=== PATIENT | female | born 1945 | race Caucasian/White ===

== ENCOUNTER 2022-08-20 07:27 | Emergency (ER) | payer MEDICARE ==
[~2022-08-20] VITALS: Ht 177.8 cm; Wt 47.8 kg
[2022-08-20 08:00] LABS: BASOPHILS # (AUTO) 0.1 X10'3 (0-0.2); BASOPHILS % (AUTO) 1.5 % (0-1); EOSINOPHILS # (AUTO) 0.1 X10'3 (0-0.9); EOSINOPHILS % (AUTO) 1.3 % (0-6); HEMATOCRIT 40.5 % (35.0-45.0); HEMOGLOBIN 13.8 g/dl (12.0-16.0); LYMPHOCYTES % (AUTO) 38.8 % (21-51); MEAN CORPUSCULAR HEMOGLOBIN 33.2 PG (27.0-31.0); MEAN CORPUSCULAR HGB CONC 34.2 g/dL (33.0-36.5); MEAN CORPUSCULAR VOLUME 97.2 FL (78-98); MEAN PLATELET VOLUME 7.1 FL (7.4-10.4); MONOCYTES # (AUTO) 0.5 X10'3 (0-0.9); MONOCYTES % (AUTO) 8.9 % (2-12); NEUTROPHILS # (AUTO) 2.6 X10'3 (1.8-7.7); NEUTROPHILS % (AUTO) 49.5 % (42-75); PLATELET COUNT 326 X10'3 (140-440); RED BLOOD COUNT 4.16 X10'6 (4.20-5.60); RED CELL DISTRIBUTION WIDTH 13.2 % (11.5-14.5); WHITE BLOOD COUNT 5.2 X10'3 (4.5-11.0)
[2022-08-20 08:34] LABS: ALANINE AMINOTRANSFERASE 17 U/L (12-78); ALBUMIN 4.1 G/DL (3.4-5.0); ALBUMIN/GLOBULIN RATIO 1.1 (1.1-1.5); ALKALINE PHOSPHATASE 111 IU/L (46-116); ANION GAP 10 (8-16); ASPARTATE AMINO TRANSFERASE 22 U/L (10-37); BILIRUBIN,TOTAL 0.5 MG/DL (0.1-1.0); BLOOD UREA NITROGEN 22 MG/DL (7-18); BUN/CREATININE RATIO 29.7 (10.0-20.0); CALCIUM 9.4 MG/DL (8.5-10.1); CHLORIDE 96 MMOL/L (99-107); CREATININE 0.74 MG/DL (0.40-0.90); GLUCOSE 118 MG/DL (70-104); POTASSIUM 4.6 MMOL/L (3.5-5.1); SODIUM 130 MMOL/L (135-145); TOTAL CARBON DIOXIDE 24.3 MMOL/L (24-32); TOTAL PROTEIN 7.8 G/DL (6.4-8.2); eGFR 77 ML/MIN
[2022-08-20] MEDS ORDERED: normal saline 1000ML IV soln IVB ONE (08:35)
[2022-08-20 11:16] LABS: CLARITY,URINE CLEAR (Clear); COLOR,URINE STRAW (Yellow); GLUCOSE, URINE NEGATIVE (Neg); KETONES,URINE TRACE mg/dl (Neg); LEUKOCYTE ESTERASE ,URINE NEGATIVE (Neg); NITRITES, URINE NEGATIVE (Neg); OCCULT BLOOD,URINE NEGATIVE (Neg); PROTEIN,URINE NEGATIVE (Neg); UROBILINOGEN,URINE 0.2 E.U/dL (0.2-1.0)
[2022-08-20 11:26] LABS: UA COLLECTION TYPE VOIDED
--- NOTE | 2022-08-20 11:50 | NUR ---
Latrice kan in [facility] - 08/20/22 at 1222 by [facility]ED AT THIS TIME FOR COMFORT/CONVENIENCE.
--- NOTE | 2022-08-20 12:20 | NUR ---
TO CT AT THIS TIME VIA [facility].
[2022-08-20 13:58] VITALS: BP 134/86
== END 2022-08-20 14:00 | disposition home or self-care (01) ==
LOC: ER 07:28
DX: R53.1 Weakness (principal); Z20.822 Contact with and (suspected) exposure to COVID-19; Z88.5 Allergy status to narcotic agent
CPT/HCPCS: 36415; 70450; 71045; 80053; 81003; 83605; 83880; 84484; 85025; 87040; 87502; 87503; 87811; 93005; 96360; 99285; J7030

== ENCOUNTER 2024-02-17 13:40 | Emergency (ER) | payer MEDICARE ==
[~2024-02-17 13:40] MED LIST: FAMO-129 PO; HYDR-3717 PO
== END 2024-02-17 15:02 | disposition left against medical advice (07) ==
LOC: ER 13:41
DX: H57.10 Ocular pain, unspecified eye (principal); Z88.8 Allergy status to other drugs, medicaments and biological substances; Z53.21 Procedure and treatment not carried out due to patient leaving prior to being seen by health care provider

== ENCOUNTER 2024-02-23 10:16 | Emergency (ER) | payer MEDICARE ==
[~2024-02-23] VITALS: Ht 177.8 cm; Wt 52.9 kg
[2024-02-23 10:18] VITALS: BP 169/97; PULSE 68; RESP 16; O2SAT 98
[2024-02-23] MEDS ORDERED: CEPH-585 PO (12:49)
[2024-02-23 13:05] VITALS: TEMP 97.4
== END 2024-02-23 13:08 | disposition home or self-care (01) ==
LOC: ER 10:16
DX: L03.211 Cellulitis of face (principal); G62.9 Polyneuropathy, unspecified; Z88.8 Allergy status to other drugs, medicaments and biological substances
CPT/HCPCS: 99283

== ENCOUNTER 2024-02-26 11:05 | Emergency (ER) | payer MEDICARE ==
[~2024-02-26] VITALS: Ht 177.8 cm; Wt 70.3 kg
[~2024-02-26 11:05] MED LIST changes: +CEPH-585 PO
[2024-02-26 11:14] VITALS: TEMP 96.8
[2024-02-26 11:55] LABS: BASOPHILS # (AUTO) 0.1 X10'3 (0-0.2); BASOPHILS % (AUTO) 1.4 % (0-1); EOSINOPHILS # (AUTO) 0.1 X10'3 (0-0.9); EOSINOPHILS % (AUTO) 1.3 % (0-6); HEMATOCRIT 35.2 % (35.0-45.0); HEMOGLOBIN 12.1 g/dl (12.0-16.0); LYMPHOCYTES # (AUTO) 1.4 X10'3 (1.1-4.8); LYMPHOCYTES % (AUTO) 34.7 % (21-51); MEAN CORPUSCULAR HEMOGLOBIN 32.6 PG (27.0-31.0); MEAN CORPUSCULAR HGB CONC 34.4 g/dL (33.0-36.5); MEAN CORPUSCULAR VOLUME 94.8 FL (78-98); MEAN PLATELET VOLUME 7.2 FL (7.4-10.4); MONOCYTES # (AUTO) 0.4 X10'3 (0-0.9); MONOCYTES % (AUTO) 10.2 % (2-12); NEUTROPHILS # (AUTO) 2.1 X10'3 (1.8-7.7); NEUTROPHILS % (AUTO) 52.4 % (42-75); PLATELET COUNT 361 X10'3 (140-440); RED BLOOD COUNT 3.72 X10'6 (4.20-5.60); RED CELL DISTRIBUTION WIDTH 15.7 % (11.5-14.5); WHITE BLOOD COUNT 4.1 X10'3 (4.5-11.0)
[2024-02-26 12:12] LABS: APTT 25 SECONDS (22-32); PROTHROMBIN TIME 10.6 SECONDS (9.0-12.0)
[2024-02-26 12:16] LABS: ALANINE AMINOTRANSFERASE 26 U/L (12-78); ALBUMIN 3.8 G/DL (3.4-5.0); ALKALINE PHOSPHATASE 127 IU/L (46-116); ANION GAP 9 (8-16); ASPARTATE AMINO TRANSFERASE 17 U/L (10-37); BILIRUBIN,TOTAL 0.7 MG/DL (0.1-1.0); BLOOD UREA NITROGEN 20 MG/DL (7-18); CALCIUM 8.8 MG/DL (8.5-10.1); CHLORIDE 102 MMOL/L (99-107); CREATININE 0.91 MG/DL (0.40-0.90); GLUCOSE 105 MG/DL (70-104); POTASSIUM 4.4 MMOL/L (3.5-5.1); SODIUM 138 MMOL/L (135-145); TOTAL CARBON DIOXIDE 26.8 MMOL/L (24-32); TOTAL PROTEIN 7.5 G/DL (6.4-8.2); eCRCL 57 ML/MIN; eGFR 60 ML/MIN
[2024-02-26 12:25] LABS: FREE T4 (FREE THYROXINE) 0.86 NG/DL (0.73-1.40); PRO BRAIN NATRIURETIC PEPTIDE 257 PG/ML (0-450); THYROID STIMULATING HORMONE 1.52 ulU/ml (0.34-4.50)
[2024-02-26] MEDS ORDERED: TRIA15CR61 TP (14:31)
[2024-02-26 14:44] VITALS: BP 139/73; PULSE 58; RESP 16; O2SAT 97
== END 2024-02-26 14:46 | disposition home or self-care (01) ==
LOC: ER 11:06
DX: L30.9 Dermatitis, unspecified (principal); Z88.8 Allergy status to other drugs, medicaments and biological substances
CPT/HCPCS: 36415; 71045; 80053; 83880; 84439; 84443; 84484; 85025; 85610; 85730; 93005; 99285

== ENCOUNTER 2025-01-06 00:36 | Emergency (ER) | payer MEDICARE ==
[~2025-01-06] VITALS: Ht 177.8 cm; Wt 80.0 kg
[~2025-01-06 00:36] MED LIST changes: -CEPH-585 PO; -HYDR-3717 PO
--- NOTE | 2025-01-06 01:00 | Physician Documentation ---
History of Present Illness ~ Chief Complaint: Abdominal Pain Stated Complaint: ABD PAIN M ALS Time Seen by MD: 00:59 Primary Medical Doctor: [facility] HPI Patient presents to the emergency room with left-sided abdominal pain of sudden onset that began tonight when she is rolling over in bed. Pain seems to come in waves. No prior history. Denies nausea vomiting diarrhea or constipation. Pain that is pleuritic in nature Medication Reconciliation Allergies: Coded Allergies: hydromorphone HCl (Verified Adverse Reaction, Unknown, VOMIT, 02/23/24) Uncoded Allergies: TAPE (Adverse Reaction, Unknown, BLISTER, 02/04/24) Scheduled Famotidine (Pepcid), 1 TAB PO Q12H Past Medical History Past Medical History: Peripheral Neuropathy Alcohol Use: None Drug Use: none Lives In: Home Review of Systems ROS All review of systems negative except as per HPI Physical Exam Vital Signs: Temperature: 98.2, Source: Oral, Heart Rate: 76, Respiratory Rate: 18, BP: 124/66, Pulse Oximetry: 95, Weight: 80.000 Oxygen Flow Rate: 0 Physical Exam General: Patient is awake, alert, oriented x4 in no acute distress Head: Normocephalic and atraumatic. Eyes: Conjunctival normal. EOMI. PERRL. ENT: Mucous membranes moist. Neck: Supple, trachea is midline. Chest: Clear to auscultation bilaterally without rales, rhonchi, or wheezes. There is no accessory muscle use or retractions. Cardiac: RRR without murmurs, gallops, or rubs. Abd: Soft, nondistended, tenderness to palpation to left upper quadrant Progress Results/Orders Results/Orders Orders - ALFIE RIVAS MD Urinalysis, Cult If Indicated (01/06/25 00:43) Straight Cath For Urine Sample (01/06/25 00:43) Ct Abdomen Pelvis (01/06/25 01:02) Completed Orders - ALFIE RIVAS MD Cbc/Diff (01/06/25 00:43) Lipase (01/06/25 00:43) CMP (01/06/25 00:43) LA (01/06/25 01:00) Ct Abdomen Pelvis (01/06/25 01:02) Ketorolac Trometh 15mg/Ml Vial (Toradol (01/06/25 01:05) Medications Received in ER Medications (Trade) Dose Ordered Sig/Marisela Route PRN Reason Start Time Stop Time Status Last Admin Dose Admin (Toradol injection) 15 mg ONCE ONCE IV 01/06/25 01:05 01/06/25 01:06 DC 01/06/25 01:14 15 MG Vital Signs 01/06/25 01/06/25 00:39 01:14 Temp 98.2 Pulse 76 Resp 18 17 B/P (MAP) 124/66 Pulse Ox 95 O2 Flow Rate 0 Laboratory Tests Test 01/06/25 00:43 01/06/25 01:08 White Blood Count 10.0 Red Blood Count 3.90 L Hemoglobin 12.8 Hematocrit 36.2 Mean Corpuscular Volume 92.9 Mean Corpuscular Hemoglobin 32.7 H Mean Corpuscular Hemoglobin Concent 35.2 Red Cell Distribution Width 13.0 Platelet Count 313 Mean Platelet Volume 7.1 L Neutrophils (%) (Auto) 74.8 Lymphocytes (%) (Auto) 18.8 L Monocytes (%) (Auto) 5.2 Eosinophils (%) (Auto) 0.7 Basophils (%) (Auto) 0.5 Neutrophils # (Auto) 7.5 Lymphocytes # (Auto) 1.9 Monocytes # (Auto) 0.5 Eosinophils # (Auto) 0.1 Basophils # (Auto) 0.0 CBC Comment Sodium Level 133 L Potassium Level 3.9 Chloride Level 98 L Carbon Dioxide Level 29.7 Anion Gap 5 L Blood Urea Nitrogen 15 Creatinine 0.83 Estimated GFR/1.73 m2 67 BUN/Creatinine Ratio 18.1 Glucose Level 103 Calcium Level 8.6 Total Bilirubin 0.5 Aspartate Amino Transf (AST/SGOT) 18 Alanine Aminotransferase (ALT/SGPT) 16 Alkaline Phosphatase 138 H Total Protein 7.1 Albumin 3.5 Globulin 3.6 Albumin/Globulin Ratio 1.0 L Lipase 33 Chemistry Comments Lactic Acid Level 1.2 Medical Decision Making Additional information obtaine: old records Findings Patient presents to the emergency room with left-sided abdominal pain as per HPI. Differentials include but are not limited to obstruction, intestinal ischemia, infectious process, kidney stone therefore emergent labs and imaging indicated. Labs and imaging reassuring for no major pathologic derangements however that has noted significant stool in the colon and I do believe this is the cause for her symptoms and we will treat her for constipation. Diff Dx GI Bleed:Consideration: Include: Blood loss anemia Diff Dx Pain:Considerations: Include: -Threatened Diff Dx N/V/D:Considerations: Include: DKA Diff Dx Rectal:Considerations: Include: Foreign body Departure Disposition: HOME / SELF CARE / HOMELESS Impression: Primary Impression: Abdominal pain Additional Impression: Constipation Condition: Stable Discharge Instructions: Constipation, Adult Referrals: NO PRIMARY CARE PROVIDER (PCP) Prescriptions Polyethylene Glycol 3350 (Miralax) 17 Gram/Dose Powder 17 GM PO DAILY for constipation, #527 GM 0 Refills Increase by 2-3 scoops daily until having regular bowel movements. Must drink with plenty of water. Avoid if diarrhea Prov: ALFIE RIVAS MD 01/06/25 Bisacodyl (Dulcolax) 5 Mg Tablet.dr 4 TAB PO ONCE for constipation for 1 Day, #4 TAB 0 Refills Prov: ALFIE RIVAS MD 01/06/25 Education Educated: Patient Educated regarding: diagnosis, treatment, need for follow up Signature Scribe Signature: No scribe Attestation: The note accurately reflects work and decisions made by me.Alfie Rivas MD 01/06/25 02:22 ALFIE RIVAS MD Jan 06, 2025 01:00
[2025-01-06] MEDS: ketorolac trometh 15mg/ml vial 15 MG/ML ML IV ONE (01:14)
[2025-01-06 01:16] LABS: MEAN PLATELET VOLUME 7.1 FL (7.4-10.4); RED CELL DISTRIBUTION WIDTH 13.0 % (11.5-14.5)
[2025-01-06 01:22] LABS: CREATININE 0.83 MG/DL (0.40-0.90); TOTAL CARBON DIOXIDE 29.7 MMOL/L (24-32); eCRCL 61 ML/MIN; eGFR 67 ML/MIN
--- NOTE | 2025-01-06 02:08 | RADIOLOGY REPORT ---
Exam: CT CT ABDOMEN PELVIS History: left sided abd pain COMPARISON: None Technique: Multidetector spiral CT of the abdomen and pelvis was performed from lung bases to pubic symphysis. Intravenous contrast was administered during this examination. Portal venous imaging was obtained. Axial, coronal and sagittal multiplanar reformats were performed by the technologist on a separate workstation. Radiation Dose : 1. Abdomen/Pelvis: CTDIvol 21 mGy, DLP 924 mGy*cm. Findings: Lower Chest: Trace layering left pleural effusion. Reticular and branching opacities in the lung bases most consistent with scarring/atelectasis. Normal imaged heart size. Liver: Unremarkable. Gallbladder and Biliary Tree: Unremarkable Pancreas: Unremarkable. Spleen: Unremarkable Adrenal Glands: Unremarkable Kidneys: No evidence of urinary stone or obstruction. Bladder/Pelvic Organs: Obscured by streak artifact, not well assessed. No obvious acute abnormality. Bowel: Normal caliber without wall thickening. No evidence of appendicitis. A few colonic diverticula are present without diverticulitis. Moderate to large pancolonic stool burden. Vasculature: Unremarkable. Lymphadenopathy: No obvious adenopathy. Peritoneum: No ascites, free air, or fluid collection. Abdominal Wall: No significant hernia. Musculoskeletal: No acute abnormality. Degenerative change and scoliotic curvature of the spine. Bilateral total hip arthroplasties, partially imaged. IMPRESSION: 1. No acute abdominopelvic abnormality, evidence of urinary stone or obstruction. 2. Moderate to large stool burden. 3. Small left pleural effusion with lung base opacities as described. Radiation optimization: All CT scans at this facility use at least one of these dose optimization techniques: automated exposure control mA and/or kV adjustment per patient size (includes targeted exams where dose is matched to clinical indication) or iterative reconstruction.
[2025-01-06] MEDS ORDERED: BISA-79 PO (02:21)
[2025-01-06] MEDS ORDERED: POLY119P2 PO (02:21)
[2025-01-06] MEDS: bisacodyl 5mg tablet.DR PO ONE (02:34)
[2025-01-06 02:42] VITALS: BP 121/69; PULSE 85; RESP 16; TEMP 98.2; O2SAT 97
== END 2025-01-06 02:50 | disposition home or self-care (01) ==
LOC: ER 00:36
DX: K59.00 Constipation, unspecified (principal)
CPT/HCPCS: 36415; 74176; 80053; 83605; 83690; 85025; 96374; 99285; J1885

== ENCOUNTER 2025-02-04 01:16 | Emergency (ER) | payer MEDICARE ==
[~2025-02-04] VITALS: Ht 177.8 cm; Wt 68.2 kg
[~2025-02-04 01:16] MED LIST changes: +BISA-79 PO; +POLY119P2 PO
[2025-02-04 02:32] VITALS: BP 139/70; PULSE 63; RESP 16; O2SAT 97
--- NOTE | 2025-02-04 03:22 | Physician Documentation ---
HPI ~ General Chief Complaint: Tooth Problem Stated Complaint: TOOTH PAIN Time Seen by MD: 03:21 OK to notify your PCP?: Yes Primary Medical Doctor: [facility] Source: patient, RN/MD, RN notes reviewed, old records Mode of Arrival: POV Exam Limitations: no limitations History of Present Illness HPI Comment This pleasant patient cracked her tooth early this afternoon and since then has been trying to find a dentist to help her emergently. She has a severe dental pain she can not sleep. She lost her 2s to the left lower molar area. She has heat and cold intolerance she tried going to the [employer] store and bought some halfway but has not had any relief. She has called every dentist possible has not emergency dental appointment February 09 unfortunately she can not take the pain at this time. She lives alone she is 79 years old in his concerned about any strong medications. Medication Reconciliation Allergies: Coded Allergies: hydromorphone HCl (Verified Adverse Reaction, Unknown, VOMIT, 02/04/25) Uncoded Allergies: TAPE (Adverse Reaction, Unknown, BLISTER, 02/04/24) Scheduled Bisacodyl (Dulcolax), 4 TAB PO ONCE Famotidine (Pepcid), 1 TAB PO Q12H Polyethylene Glycol 3350 (Miralax), 17 GM PO DAILY Past Medical History Past Medical History: Peripheral Neuropathy Alcohol Use: None Drug Use: none Lives In: Home Review of Systems All Other Systems at this time: Reviewed and Negative Physical Exam Vital Signs: RN Vital Signs have been reviewed: Yes, Temperature: 97.8, Source: Oral, Heart Rate: 63, Respiratory Rate: 16, BP: 139/70, Pulse Oximetry: 97, Weight: 68.200 Physical Exam General: The patient is well developed, well nourished, nontoxic appearing and is in mi acute distress. Skin: Jansen, warm and dry with no rashes. HEENT: Head was normocephalic and atraumatic. Eyes - pupils equal, round, reactive to light and accommodation. Extraocular movements were intact. Conjunctivae were nonicteric. The mouth and oropharynx were clear with moist mucous membranes. There were no pharyngeal exudates or erythema. Left lower premolar is missing and broken down to the root tender to palpation normal gumline Neck: Supple and nontender. There was no jugular venous distention, lymphadenopathy, thyromegaly or masses. Chest: Clear to auscultation bilaterally without wheezes, rales or rhonchi. Heart: Rate regular and rhythmic. S1, S2. Abdomen: Soft, nontender and nondistended. Positive bowel sounds Extremities: No cyanosis, clubbing or edema. The patient moves all extremities. Neurologic: Motor sensory grossly intact Psychologic: The patient was oriented to person, place and time. The patient demonstrated appropriate judgement and insight. Progress Results/Orders Results/Orders Completed Orders - ARANZA AGOSTO MD Lidocaine 1% W/Epi 1:100,000 (Xylocaine (02/04/25 03:30) Amox Tr/Potassium Clavulanate (Augmentin (02/04/25 03:30) Medications Received in ER Medications (Trade) Dose Ordered Sig/Marisela Route PRN Reason Start Time Stop Time Status Last Admin Dose Admin (Augmentin 875-125mg tablet) 1 tab ONCE ONCE PO 02/04/25 03:30 02/04/25 03:31 DC 02/04/25 03:37 1 TAB Vital Signs 02/04/25 02/04/25 01:21 02:32 Temp 97.8 97.8 Pulse 62 63 Resp 16 16 B/P (MAP) 147/73 139/70 (93) Pulse Ox 96 97 Re-Evaluation Re-Evaluation : Re-Evaluation: Resolved Progress Patient was seen and examined. Patient is given reassurance. The patient was given a inferior alveolar nerve block. Patient tolerated the procedure she was injected with xylocaine 1% with epi had good anesthesia pain has resolved. Her lip does not have any numbness but her cheek is completely numb. Patient was observed she is doing well she can tolerate her secretions no side effects no lid drop from her eye. She was now discharged home Medical Decision Making Additional information obtaine: old records Findings Dental pain, dental infection Differential Dx:Considerations: Include: Alveolar fracture, Alveolar osteitis, ANUG, Facial Cellulitis, Periapical abscess, Peridontal abscess, Post-extraction bleeding, Pulpitis, Tooth avulsion, Tooth eruption, Tooth Fracture, Trigeminal neuralgia, Tooth subluxation, Other Departure Disposition: HOME / SELF CARE / HOMELESS Impression: Primary Impression: Fractured tooth Qualified Codes: S02.5XXA - Fracture of tooth (traumatic), initial encounter for closed fracture Additional Impression: Dentalgia Condition: Stable Discharge Instructions: Dental Pain Referrals: NO PRIMARY CARE PROVIDER (PCP) Education Educated: Patient Educated regarding: diagnosis, need for follow up, other Signature Scribe Signature: No Attestation: The note accurately reflects work and decisions made by me.Aranza Agosto MD 02/04/25 03:22 ARANZA AGOSTO MD Feb 04, 2025 03:22
[2025-02-04] MEDS: amox tr/potassium clavulanate 875/125mg TAB PO ONE (03:37)
[2025-02-04] MEDS: LIDOcaine 1% W/epiNEPHrine 1:100,000 20ml vial IJ ONE (03:38)
[2025-02-04 04:34] VITALS: TEMP 98
== END 2025-02-04 04:39 | disposition home or self-care (01) ==
LOC: ER 01:16
DX: S02.5XXA Fracture of tooth (traumatic), initial encounter for closed fracture (principal); K08.89 Other specified disorders of teeth and supporting structures; G62.9 Polyneuropathy, unspecified; Z79.899 Other long term (current) drug therapy; Z88.8 Allergy status to other drugs, medicaments and biological substances; X58.XXXA Exposure to other specified factors, initial encounter; Y93.89 Activity, other specified; Y92.89 Other specified places as the place of occurrence of the external cause; Y99.8 Other external cause status
CPT/HCPCS: 99283